=== PATIENT | female | born 1990 | race African-American/Black ===

== ENCOUNTER 2016-03-08 08:50 | Emergency (ER) | payer BC ==
[2016-03-08 10:16] LABS: ABSOLUTE BASOPHILS # (AUTO) 0.1 10^3/uL (0.0-0.2); ABSOLUTE EOSINOPHILS # (AUTO) 0.1 10^3/uL (0.0-0.6); ABSOLUTE LYMPHOCYTES (AUTO) 1.8 10^3/uL (0.5-4.7); ABSOLUTE MONOCYTES (AUTO) 0.3 10^3/uL (0.1-1.4); ABSOLUTE NEUT (AUTO) 1.6 10^3/uL (1.7-8.2); BASOPHILS % (AUTO) 1.8 % (0-2); EOSINOPHILS % (AUTO) 3.1 % (0-6); HEMATOCRIT 40.9 % (36.0-47.0); HGB HCT DIFFERENCE -1.9; LYMPHOCYTES % (AUTO) 47.5 % (13-45); MEAN CORPUSCULAR HEMOGLOBIN 29.2 pg (27.0-33.4); MEAN CORPUSCULAR HGB CONC 31.8 g/dL (32.0-36.0); MEAN CORPUSCULAR VOLUME 92 fl (80-97); MONOCYTES % (AUTO) 7.8 % (3-13); RED BLOOD COUNT 4.46 10^6/uL (3.72-5.28); RED CELL DISTRIBUTION WIDTH 13.1 % (11.5-14.0); SEGMENTED NEUTROPHILS % (AUTO) 39.8 % (42-78); WHITE BLOOD COUNT 3.9 10^3/uL (4.0-10.5)
[2016-03-08 10:17] LABS: ALANINE AMINOTRANSFERASE 22 U/L (9-52); ALBUMIN 3.9 g/dL (3.5-5.0); ALKALINE PHOSPHATASE 64 U/L (38-126); ANION GAP 8 (5-19); ASPARTATE AMINO TRANSFERASE 15 U/L (14-36); BILIRUBIN,TOTAL 0.5 mg/dL (0.2-1.3); BLOOD UREA NITROGEN 16 mg/dL (7-20); CALCIUM 9.3 mg/dL (8.4-10.2); CARBON DIOXIDE 28 mmol/L (22-30); CHLORIDE 104 mmol/L (98-107); CREATINE KINASE 85 U/L (30-135); CREATININE RESULT 0.78 mg/dL (0.52-1.25); GLUCOSE 86 mg/dL (75-110); POTASSIUM 4.4 mmol/L (3.6-5.0)
--- NOTE | 2016-03-08 10:49 | ER Document Report ---
ED General - General Chief Complaint: Chest Pain Stated Complaint: CHEST PAIN Mode of Arrival: Ambulatory Information source: Patient Notes: 25-year-old female presents with complaints of sharp chest pain intermittently over the past 6 months. Patient states when she is anxious to pain presents. Patient does note family history of cardiomyopathy TRAVEL OUTSIDE OF THE [place] IN LAST 30 DAYS: No - HPI Onset: Other Onset/Duration: Intermittent Quality of pain: Sharp Severity: Mild Pain Level: 1 Associated symptoms: Chest pain, Other Exacerbated by: Other - Anxiety Relieved by: Denies Similar symptoms previously: No Recently seen / treated by doctor: No - Related Data Allergies/Adverse Reactions: No Known Allergies Allergy (Verified 06/19/15 14:57) Past Medical History - Social History Smoking Status: Never Smoker Cigarette use (# per day): No Chew tobacco use (# tins/day): No Smoking Education Provided: No Frequency of alcohol use: Occasional Drug Abuse: None Family History: Reviewed & Not Pertinent Patient has suicidal ideation: No Patient has homicidal ideation: No Renal/ Medical History: Denies: Hx Peritoneal Dialysis GI Medical History: Reports: Hx Gastroesophageal Reflux Disease Musculoskeltal Medical History: Reports Hx Arthritis Past Surgical History: Reports: Hx Orthopedic Surgery Review of Systems - Review of Systems Notes: REVIEW OF SYSTEMS: CONSTITUTIONAL : Denies fever, chills, or sweats. Denies recent illness. EENT: Denies eye, ear, throat, or mouth pain or symptoms. Denies nasal or sinus congestion or discharge. Denies throat, tongue, or mouth swelling or difficulty swallowing. CARDIOVASCULAR: chest pain RESPIRATORY: Denies cough, cold, or chest congestion. Denies shortness of breath, difficulty breathing, or wheezing. GASTROINTESTINAL: Denies abdominal pain or distention. Denies nausea, vomiting , or diarrhea. Denies blood in vomitus, stools, or per rectum. Denies black, tarry stools. Denies constipation. GENITOURINARY: Denies difficulty urinating, painful urination, burning, frequency, blood in urine, or discharge. FEMALE GENITOURINARY: Denies vaginal bleeding, heavy or abnormal periods, irregular periods. Denies vaginal discharge or odor. MUSCULOSKELETAL: Denies back or neck pain or stiffness. Denies joint pain or swelling. SKIN: Denies rash, lesions or sores. HEMATOLOGIC : Denies easy bruising or bleeding. LYMPHATIC: Denies swollen, enlarged glands. NEUROLOGICAL: Denies confusion or altered mental status. Denies passing out or loss of consciousness. Denies dizziness or lightheadedness. Denies headache. Denies weakness or paralysis or loss of use of either side. Denies problems with gait or speech. Denies sensory loss, numbness, or tingling. Denies seizures. PSYCHIATRIC: admiuts to anxiety ALL OTHER SYSTEMS REVIEWED AND NEGATIVE. Dictation was performed using [employer] voice recognition software PHYSICAL EXAMINATION: GENERAL: Well-appearing, well-nourished and in no acute distress. HEAD: Atraumatic, normocephalic. EYES: Pupils equal round and reactive to light, extraocular movements intact, conjunctiva are normal. ENT: Nares patent, oropharynx clear without exudates. Moist mucous membranes. NECK: Normal range of motion, supple without lymphadenopathy LUNGS: Breath sounds clear to auscultation bilaterally and equal. No wheezes rales or rhonchi. HEART: Regular rate and rhythm without murmurs ABDOMEN: Soft, nontender, nondistended abdomen. No guarding, no rebound. No masses appreciated. Female : deferred Musculoskeletal: Normal range of motion, no pitting or edema. No cyanosis. NEUROLOGICAL: Cranial nerves grossly intact. Normal speech, normal gait. Normal sensory, motor exams PSYCH: Normal mood, normal affect. SKIN: Warm, Dry, normal turgor, no rashes or lesions noted. Physical Exam - Vital signs Vitals: Temp Pulse Resp BP Pulse Ox 98.0 F 58 L 18 119/75 100 03/08/16 09:02 03/08/16 09:02 03/08/16 09:02 03/08/16 09:02 03/08/16 09:02 Course - Re-evaluation Re-evalutation: 03/08/16 11:26 Patient's complaints are secondary to anxiety, i do not beleive there is any life-threatening issues EKG chest x-ray were normal patient will be given cardiology follow-up as well as mental health follow-up After performing a Medical Screening Examination, I estimate there is LOW risk for RUPTURED ESOPHAGUS, PNEUMOTHORAX, PULMONARY EMBOLISM, ACUTE CORONARY SYNDROME, OR THORACIC AORTIC DISSECTION, thus I consider the discharge disposition reasonable. The patient and I have discussed the diagnosis and risks , and we agree with discharging home with close follow-up. We also discussed returning to the Emergency Department immediately if new or worsening symptoms occur. We have discussed the symptoms which are most concerning (e.g., bloody sputum, worsening pain or shortness of breath) that necessitate immediate return. - Vital Signs Vital signs: Temp Pulse Resp BP Pulse Ox 98.0 F 58 L 18 119/75 100 03/08/16 09:02 03/08/16 09:02 03/08/16 09:02 03/08/16 09:02 03/08/16 09:02 - Laboratory Result Diagrams: 03/08/16 09:52 03/08/16 09:52 Laboratory results interpreted by me: 03/08/16 09:52 WBC 3.9 L MCHC 31.8 L Plt Count 461 H Seg Neutrophils % 39.8 L Lymphocytes % 47.5 H Absolute Neutrophils 1.6 L - Diagnostic Test Radiology reviewed: Image reviewed, Reports reviewed - EKG Interpretation by Me EKG shows normal: Sinus rhythm, [place], Intervals, QRS Complexes Discharge - Discharge Clinical Impression: Anxiety Chest pain, unspecified Qualifiers: Chest pain type: unspecified Qualified Code(s): R07.9 - Chest pain, unspecified Condition: Stable Disposition: HOME, SELF-CARE Instructions: Chest Pain of Unclear Cause ([facility]) Prescriptions: Naproxen 500 mg PO Q8 #30 tablet Forms: Return to Work Referrals: VIDA TAPIA MD [ACTIVE STAFF] - Follow up tomorrow
[2016-03-08 11:44] VITALS: BP 119/72
--- NOTE | 2016-03-08 12:54 | EKG REPORT ---
SEVERITY:- NORMAL ECG - SINUS RHYTHM : Confirmed by: Philomena Hennessy MD 08-Mar-2016 12:52:29
== END 2016-03-08 10:28 | disposition home or self-care (01) ==
LOC: ER 08:50
DX: R07.9 Chest pain, unspecified (principal); F41.9 Anxiety disorder, unspecified; K21.9 Gastro-esophageal reflux disease without esophagitis
CPT/HCPCS: 36415; 71020; 80053; 82550; 82553; 85025; 93005; 93010; 99285

== ENCOUNTER 2016-07-06 03:49 | Emergency (ER) | payer BC ==
--- NOTE | 2016-07-06 04:33 | ER Document Report ---
ED General - General Chief Complaint: Syncope Stated Complaint: POSSIBLE SYNCOPE Time Seen by Provider: 07/06/16 03:53 Notes: Patient is a 25-year-old female presents with complaint of probable panic attack. Patient recently got through a rough relationship. Patient's mother is now bedside and status patient's friend. She has had intermittent panic attacks. In the last several weeks. She is currently on no medications. She had alcohol to drink tonight and started to have hyperventilation as well as shaking. Family says she has had same episodes in the past. Recently she has been able to control them well but tonight with alcohol she was unable to control them. She is now feeling improved. She still little bit nauseous. She says that Zofran makes her more nauseous. Phenergan has worked for the past. She denies recent trauma or injuries. No other complaints at this time. TRAVEL OUTSIDE OF THE [place] IN LAST 30 DAYS: No - Related Data Allergies/Adverse Reactions: No Known Allergies Allergy (Verified 06/19/15 14:57) Past Medical History - Social History Smoking Status: Unknown if Ever Smoked Frequency of alcohol use: Occasional Drug Abuse: None Family History: Reviewed & Not Pertinent Renal/ Medical History: Denies: Hx Peritoneal Dialysis GI Medical History: Reports: Hx Gastroesophageal Reflux Disease Musculoskeltal Medical History: Reports Hx Arthritis Past Surgical History: Reports: Hx Orthopedic Surgery Review of Systems - Review of Systems Notes: My Normal Review Basic REVIEW OF SYSTEMS: CONSTITUTIONAL : Denies fever, chills, or sweats. Denies recent illness. CARDIOVASCULAR: Denies chest pain. RESPIRATORY: Denies cough, cold, or chest congestion. Denies shortness of breath, difficulty breathing, or wheezing. GASTROINTESTINAL: Denies abdominal pain. Vomiting. GENITOURINARY: Denies difficulty urinating, painful urination, burning, frequency, or blood in urine. MUSCULOSKELETAL: Denies neck or back pain or joint pain or swelling. SKIN: Denies rash or skin lesions. NEUROLOGICAL: Denies altered mental status or loss of consciousness. Denies headache. Denies weakness or paralysis or loss of use of either side. Denies problems with gait or speech. Denies sensory or motor loss. PSYCHIATRIC: Stress and panic attacks. ALL OTHER SYSTEMS REVIEWED AND NEGATIVE. Physical Exam - Vital signs Vitals: Temp Pulse Resp BP Pulse Ox 97.6 F 74 20 126/79 H 100 07/06/16 03:53 07/06/16 03:53 07/06/16 03:53 07/06/16 03:53 07/06/16 03:53 - Notes Notes: General Appearance: Well nourished, alert, cooperative, no acute distress, no obvious discomfort. Anxious appearing. Vitals: reviewed, See vital signs table. Head: no swelling or tenderness to the head Eyes: PERRL, EOMI, Conjuctiva clear Mouth: No decreasd moisture Lungs: No wheezing, No rales, No rhonci, No accessory muscle use, good air exchange bilaterally. Mild hyperventilation. No difficulty breathing. Heart: Normal rate, Regular rythm, No murmur, no rub Abdomen: Normal BS, soft, No rigidity, No abdominal tenderness, No guarding, no rebound, no abdominal masses, no organomegaly Extremities: strength 5/5 in all extremities, good pulses in all extremities, no swelling or tenderness in the extremities, no edema. Skin: warm, dry, appropriate color, no rash Neuro: speech clear, oriented x 3, normal affect, responds appropriately to questions. Course - Vital Signs Vital signs: Temp Pulse Resp BP Pulse Ox 97.6 F 74 20 126/79 H 100 07/06/16 03:53 07/06/16 03:53 07/06/16 03:53 07/06/16 03:53 07/06/16 03:53 - EKG Interpretation by Me Additional EKG results interpreted by me: 07/06/16 04:32 EKG is reviewed and interpreted by me. EKG shows normal sinus rhythm with a rate of [address] segment elevation or depression. No ischemic T-wave inversions. CT interval, QRS duration, QTc intervals are within normal range. Old EKG for comparison is from March 08, 2016. Discharge - Discharge Clinical Impression: Panic attack, ETOH abuse Condition: Good Disposition: HOME, SELF-CARE Additional Instructions: Please return to the ER if you have recurrent panic attacks not responding to the Ativan, any depression or thoughts of suicide, or if you have any further concerns. Ativan can become addicting so only take the medication when absolutely necessary. Please follow up with your doctor about continued management options of your stress. Prescriptions: Lorazepam [Ativan 0.5 mg Tablet] 0.5 mg PO Q6 #10 tab Forms: Return to Work, Special Work Note
[2016-07-06] MEDS ORDERED: PROMETHAZINE HCL INJ 25 MG/1 ML VIAL IM ONE (04:39)
[2016-07-06] MEDS ORDERED: PROMETHAZINE HCL INJ 50 MG/1 ML VIAL IM ONE (04:54)
[2016-07-06] MEDS ORDERED: PROMETHAZINE HCL INJ 50 MG/1 ML VIAL ONE (04:57)
[2016-07-06 05:44] VITALS: BP 104/70
--- NOTE | 2016-07-06 08:19 | EKG REPORT ---
SEVERITY:- NORMAL ECG - SINUS RHYTHM : Confirmed by: Hayden Snyder MD 06-Jul-2016 08:18:47
== END 2016-07-06 05:35 | disposition home or self-care (01) ==
LOC: ER 03:49
DX: F41.0 Panic disorder [episodic paroxysmal anxiety] (principal); F10.10 Alcohol abuse, uncomplicated; R55 Syncope and collapse
CPT/HCPCS: 93005; 93010; 96372; 99284; J2550

== ENCOUNTER 2019-04-29 11:27 | Emergency (ER) | payer SELFPAY ==
--- NOTE | 2019-04-29 11:49 | ER Document Report ---
ED Medical Screen (RME) - General Chief Complaint: Chest Pain Stated Complaint: CHEST PAIN Time Seen by Provider: 04/29/19 11:38 Mode of Arrival: Ambulatory Information source: Patient Notes: Patient is an otherwise healthy 28-year-old female presenting to the emergency department chief complaint of chest pain. Patient reports pain to the left side of her chest intermittently feels like sharp stabbing pains and pressure. She states it started under her left breast and has now radiated to her left upper chest wall. She denies any pain in her neck, jaw or arms. She denies any nausea or shortness of breath. She states the pain is been intermittent over the last 3 days. She denies any recent injury. Patient alert, oriented, answering all questions appropriately. EKG reviewed, shows a sinus rhythm, no ST segment elevations or depressions. Lung sounds clear and equal bilaterally I have greeted and performed a rapid initial assessment of this patient. A comprehensive ED assessment and evaluation of the patient, analysis of test results and completion of the medical decision making process will be conducted by additional ED providers. I have specifically instructed the patient or family members with the patient to immediately return to any nursing staff should anything change in the patient's condition or with their chief complaint. TRAVEL OUTSIDE OF THE [place] IN LAST 30 DAYS: No - Related Data Allergies/Adverse Reactions: blueberry Allergy (Verified 04/29/19 11:39) No Known Drug Allergies Allergy (Verified 04/29/19 11:39) strawberry Allergy (Verified 04/29/19 11:39) Past Medical History Renal/ Medical History: Denies: Hx Peritoneal Dialysis GI Medical History: Reports: Hx Gastroesophageal Reflux Disease Musculoskeltal Medical History: Reports Hx Arthritis Past Surgical History: Reports: Hx Orthopedic Surgery
[2019-04-29 12:17] LABS: ABSOLUTE EOSINOPHILS # (AUTO) 0.1 10^3/uL (0.0-0.6); ABSOLUTE LYMPHOCYTES (AUTO) 2.2 10^3/uL (0.5-4.7); ABSOLUTE MONOCYTES (AUTO) 0.4 10^3/uL (0.1-1.4); ABSOLUTE NEUT (AUTO) 1.9 10^3/uL (1.7-8.2); BASOPHILS % (AUTO) 1.1 % (0-2); HEMATOCRIT 39.5 % (36.0-47.0); HEMOGLOBIN 13.9 g/dL (12.0-15.5); MEAN CORPUSCULAR HEMOGLOBIN 31.6 pg (27.0-33.4); MEAN CORPUSCULAR HGB CONC 35.2 g/dL (32.0-36.0); MEAN CORPUSCULAR VOLUME 90 fl (80-97); MONOCYTES % (AUTO) 8.1 % (3-13); PLATELET COUNT 509 10^3/uL (150-450); RED CELL DISTRIBUTION WIDTH 13.2 % (11.5-14.0); SEGMENTED NEUTROPHILS % (AUTO) 40.8 % (42-78); TOTAL CELLS COUNTED % (AUTO) 100 %; WHITE BLOOD COUNT 4.6 10^3/uL (4.0-10.5)
--- NOTE | 2019-04-29 12:22 | RADIOLOGY REPORT (SQ) ---
EXAM DESCRIPTION: CHEST 2 VIEWS COMPLETED DATE/TIME: 04/29/2019 12:05 pm REASON FOR STUDY: chest pain COMPARISON: 03/08/2016 EXAM PARAMETERS: NUMBER OF VIEWS: two views TECHNIQUE: Digital Frontal and Lateral radiographic views of the chest acquired. RADIATION DOSE: NA LIMITATIONS: none FINDINGS: LUNGS AND PLEURA: No opacities, masses or pneumothorax. No pleural effusion. MEDIASTINUM AND HILAR STRUCTURES: No masses or contour abnormalities. HEART AND VASCULAR STRUCTURES: Heart normal size. No evidence for failure. BONES: No acute findings. HARDWARE: None in the chest. OTHER: No other significant finding. IMPRESSION: NO ACUTE RADIOGRAPHIC FINDING IN THE CHEST. TECHNICAL DOCUMENTATION: JOB ID: [id number] 2010 [employer]- All Rights Reserved Reading location - IP/workstation name: [email or web address]
[2019-04-29 12:47] LABS: ALBUMIN 4.2 g/dL (3.5-5.0); ALKALINE PHOSPHATASE 68 U/L (38-126); ANION GAP 11 (5-19); ASPARTATE AMINO TRANSFERASE 35 U/L (14-36); BILIRUBIN,DIRECT 0.2 mg/dL (0.0-0.4); BILIRUBIN,TOTAL 0.4 mg/dL (0.2-1.3); BLOOD UREA NITROGEN 10 mg/dL (7-20); CALCIUM 9.1 mg/dL (8.4-10.2); CARBON DIOXIDE 26 mmol/L (22-30); CHLORIDE 100 mmol/L (98-107); GLUCOSE 81 mg/dL (75-110); POTASSIUM 4.3 mmol/L (3.6-5.0); TOTAL PROTEIN 7.1 g/dL (6.3-8.2)
--- NOTE | 2019-04-29 13:37 | ER Document Report ---
ED General - General Chief Complaint: Chest Pain Stated Complaint: CHEST PAIN Time Seen by Provider: 04/29/19 11:38 Mode of Arrival: Ambulatory Notes: Patient is a 28-year-old female who comes in complaining of chest pain that she relates to anxiety. No trouble breathing. No cough or fever. Patient states that she has had symptoms like this before. No other complaints or concerns. Feels better at this time. Works at a [employer] center and thinks that this makes her more anxious. TRAVEL OUTSIDE OF THE [place] IN LAST 30 DAYS: No - HPI Onset: This morning Onset/Duration: Gradual Quality of pain: Achy, Dull Exacerbated by: Movement Relieved by: Denies - Related Data Allergies/Adverse Reactions: blueberry Allergy (Verified 04/29/19 11:39) No Known Drug Allergies Allergy (Verified 04/29/19 11:39) strawberry Allergy (Verified 04/29/19 11:39) Past Medical History - General Information source: Patient - Social History Smoking Status: Never Smoker Chew tobacco use (# tins/day): No Frequency of alcohol use: wine Drug Abuse: None Family History: Reviewed & Not Pertinent Patient has suicidal ideation: No Patient has homicidal ideation: No - Medical History Medical History: Negative Renal/ Medical History: Denies: Hx Peritoneal Dialysis GI Medical History: Reports: Hx Gastroesophageal Reflux Disease Musculoskeletal Medical History: Reports Hx Arthritis Past Surgical History: Reports: Hx Orthopedic Surgery Review of Systems - Review of Systems -: Yes All other systems reviewed and negative Physical Exam - Vital signs Vitals: Temp Pulse Resp BP Pulse Ox 98.3 F 64 18 122/64 100 04/29/19 11:48 04/29/19 11:48 04/29/19 11:48 04/29/19 11:48 04/29/19 11:48 Interpretation: Normal - General General appearance: Appears well, Alert - HEENT Head: Normocephalic, Atraumatic Eyes: Normal Pupils: PERRL - Respiratory Respiratory status: No respiratory distress Chest status: Nontender Breath sounds: Normal Chest palpation: Normal - Cardiovascular Rhythm: Regular Heart sounds: Normal auscultation Murmur: No - Abdominal Inspection: Normal Distension: No distension Bowel sounds: Normal Tenderness: Nontender Organomegaly: No organomegaly - Back Back: Normal, Nontender - Extremities General upper extremity: Normal inspection, Nontender, Normal color, Normal ROM, Normal temperature General lower extremity: Normal inspection, Nontender, Normal color, Normal ROM, Normal temperature, Normal weight bearing. No: Kelly's sign - Neurological Neuro grossly intact: Yes Cognition: Normal Orientation: AAOx4 [place] Coma Scale Eye Opening: Spontaneous Efe Coma Scale Verbal: Oriented [place] Coma Scale Motor: Obeys Commands [place] Coma Scale Total: 15 Speech: Normal Motor strength normal: LUE, RUE, LLE, RLE Sensory: Normal - Psychological Associated symptoms: Normal affect, Normal mood - Skin Skin Temperature: Warm Skin Moisture: Dry Skin Color: Normal Course - Re-evaluation Re-evalutation: 04/29/19 17:37 Patient appears well. Work-up negative. Likely due to anxiety which she has medication for at home. Return if any worsening concerning symptoms. Needs work note. Stable for discharge. Follow-up with PMD. - Vital Signs Vital signs: Temp Pulse Resp BP Pulse Ox 98.7 F 63 14 120/62 100 04/29/19 14:12 04/29/19 14:12 04/29/19 14:12 04/29/19 14:12 04/29/19 14:12 - Laboratory Result Diagrams: 04/29/19 12:00 04/29/19 12:00 Laboratory results interpreted by me: 04/29/19 04/29/19 12:00 12:00 Plt Count 509 H Lymph % (Auto) 48.0 H Seg Neutrophils % 40.8 L Sodium 136.7 L ALT 67 H Discharge - Discharge Clinical Impression: Atypical chest pain Condition: Stable Disposition: HOME, SELF-CARE Instructions: Chest Pain of Unclear Cause ([facility]) Forms: Return to Work
[2019-04-29 14:13] VITALS: BP 120/62
--- NOTE | 2019-04-29 20:01 | EKG REPORT ---
SEVERITY:- NORMAL ECG - SINUS RHYTHM : Confirmed by: Philomena Hennessy MD 29-Apr-2019 20:01:40
== END 2019-04-29 14:14 | disposition home or self-care (01) ==
LOC: ER 11:27
DX: R07.89 Other chest pain (principal); F41.9 Anxiety disorder, unspecified; Z79.899 Other long term (current) drug therapy; Z91.018 Allergy to other foods
CPT/HCPCS: 36415; 71046; 80053; 84484; 85025; 93005; 93010; 99284